=== PATIENT | female | born 1975 | race Caucasian/White ===

== ENCOUNTER → 2024-05-06 16:54 | Outpatient (REF) | payer OTHER, SELFPAY | LOC: HWRAD 16:54 | PROVIDERS: ATTENDING PHYSICIAN Nurse Practitioner | DX: R22.9 Localized swelling, mass and lump, unspecified (principal) | CPT/HCPCS: 73130 ==

== ENCOUNTER 2024-07-01 05:28 | Emergency (ER) | payer OTHER, SELFPAY ==
[2024-07-01 05:39] VITALS: BP 123/84
[2024-07-01 05:54] VITALS: BP 130/77
[2024-07-01 06:00] VITALS: BP 121/88
--- NOTE | 2024-07-01 06:01 | ED.GENMED ---
History of Present Illness
General
Chief Complaint: Chest Pain
Time Seen by Provider: 07/01/24 05:58
History of Present Illness
History of Present Illness:
HPI: Patient presents with intermittent left upper extremity discomfort over the past week. She does not necessarily report any significant chest discomfort. The pain in the left upper extremity radiates towards the left shoulder/neck region. She
was concerned because her brother yesterday. Her brother had other comorbidities. She has at least some questionable shortness of breath. She has no pleuritic pain. Symptoms do not worsen with exertion. She also reports chronic left lower
extremity swelling (hardly noticeable on examination).
EXAM:
GENERAL: Well appearing in no distress
HEENT: Moist oral mucosa
CARDIOVASCULAR: No murmurs, normal heart rate, regular rhythm, No chest wall tenderness
PULMONARY: No respiratory distress, breath sounds are clear and equal
ABDOMEN: Soft with no peritoneal signs, no tenderness
NEUROLOGIC: Excellent strength all extremities, no coordination deficits
PSYCHIATRIC: Appropriate mental status, normal insight and judgement
EXTREMITIES: Nontender, no edema, moves all extremities equally, negative empty can test of the left upper extremity
SKIN: No rash, no lesions
TIME OF INITIAL ENCOUNTER: 6 AM
NUMBER AND COMPLEXITY OF PROBLEMS ADDRESSED AT THE ENCOUNTER
� Chronic conditions affecting care: Denies any significant past medical history
� Acute Exacerbation and/or Progression of Chronic Illness: This is an acute problem
� Differential Diagnosis includes: Musculoskeletal pain, ACS unlikely, stress/anxiety
AMOUNT AND/OR COMPLEXITY OF DATA TO BE REVIEWED AND ANALYZED
� I performed an independent evaluation of and my interpretation is:
EKG: Sinus 67, normal axis, no acute ST abnormality
CT:
X-rays:
Laboratory Studies: White count 5.5, hemoglobin 12.3, chemistries normal, troponin negative (has had symptoms for the past week). hCG negative.
Other:
� Review of other/old records: The patient had an exercise stress test with Dr. Gaona that was normal in 2020
� Clinical information was obtained by an independent historian: None needed
� Prescriptions/Medications Considered but not given:
� Further testing considered but not performed: Consider D-dimer however PERC is negative (unilateral left lower extremity swelling is reported but is chronic for many years)
RISK OF COMPLICATIONS AND/OR MORBIDITY OR MORTALITY OF PATIENT MANAGEMENT
� Social determinants of health affecting care: Lives at home, brother yesterday
� Discussion with other providers: None needed
� Escalation of care including admission/observation vs risk of discharge considered: Vital signs are not consistent with PE. EKG is normal. She had a treadmill stress test 3 years ago that was unremarkable. Suspect component
of stress/anxiety. On reassessment at 7 AM, the patient appears very comfortable. She suspects her symptoms are related to stress. No clear indication for admission to the hospital. Recommend close follow-up with cardiology as well.
Past History
Past History
ED Past Medical History: Other (Vasovagal syncope)
ED Past Surgical History: Gynecological
Social History
Tobacco: Non-smoker
Personal:
Living: with family
Employment: Employed (Desk work)
Family History
Family History: Unable to obtain
Phy Exam
Physical Exam
Physical Exam:
See HPI
Scores
Heart Score for Chest Pain Patients
STEMI patient?: Not applicable
Course
Orders/Labs/Results
Orders:
Orders
07/01/24 05:30
ECG [Electrocardiogram (*1)] Urgent
Reason for Study: Chest Pain
Cardiology Consult: Unknown
EKG- Treatment ONCE
07/01/24 05:51
Test Result ONCE
07/01/24 06:02
Complete Blood Count/With Diff Urgent
Comprehensive Metabolic Panel Urgent
HCG, Serum Qualitative Screen Urgent
Troponin I Urgent
Abnormal Lab Results
07/01/24
06:02
Hct 36.3 L %
(37.0-47.0)
MCV 80.1 L fL
(81.0-99.0)
RDW 15.0 H %
(11.5-14.5)
Absolute Monos (auto) 0.8 H 10^3/uL
(0.1-0.6)
Monocytes % 13.6 H %
(1.7-9.3)
07/01/24 06:02
07/01/24 06:02
Vital Signs
Initial and Last Documented VS:
Initial Vital Signs
Temp Pulse Resp BP Pulse Ox
98.2 F 72 20 123/84 99
07/01/24 05:39 07/01/24 05:39 07/01/24 05:39 07/01/24 05:39 07/01/24 05:39
Last Documented Vital Signs
Temp Pulse Resp BP Pulse Ox
98.2 F 72 20 123/84 99
07/01/24 05:39 07/01/24 05:39 07/01/24 05:39 07/01/24 05:39 07/01/24 05:39
*Critical Care Note
Total Time (30-74mins, 75-104mins- exclusive of procedures): Not Applicable
ED Attending Note
-
Portions of this chart may have been created with voice recognition software.� Occasional wrong word or��sound alike� substitutions may have occurred due to the inherent limitations of voice recognition software.
Discharge Plan
Departure
Prescriptions:
No Action
ondansetron 8 MG tablet,disintegrating
8 mg PO PRN PRN (Reason: nausea)
Patient Comments:
Q4 hr PRN
cefdinir 300 MG capsule
300 mg PO BID
hydrocodone-acetaminophen 1 EACH tablet
1 ea PO PRN PRN (Reason: pain)
Patient Comments:
Q4hr PRN; pt has not taken any yet
Multivitamin
1 tab PO DAILY
cyclobenzaprine 10 MG tablet
10 mg PO BIDPRN PRN (Reason: muscle tightness/spasm) Qty: 10 0RF
tamsulosin 0.4 MG capsule
0.4 mg PO DAILY Qty: 5 0RF
oxycodone-acetaminophen 5 MG/325 MG tablet
1 tab PO Q4HPRN PRN (Reason: pain) Qty: 7 0RF
Referrals:
Georgie Ramirez CRNP [Family Provider] -
Interventions
Interventions:
*Risk Screen - Suicide Last Done: 07/01/24 05:39
*General Assessment Last Done: 07/01/24 05:39
*Neglect/Abuse Screening Last Done: 07/01/24 05:39
ED- Fall Risk Assessment Last Done: 07/01/24 05:39
ED- Cardiac Assessment Last Done: 07/01/24 06:04
Discharge Date and Time
Print Language: [id number]
[2024-07-01 06:07] VITALS: BMI 33.4
[2024-07-01 06:18] LABS: % Basophils 0.9 % (0-2); % Eosinophils 3.6 % (0-6); % Immature Granulocytes 0.2 % (0-0.5); % Monocytes 13.6 % (1.7-9.3); % Neutrophils 44.7 % (42.2-75.2); Absolute Basophils 0.1 10^3/uL (0-0.2); Absolute Eosinophils 0.2 10^3/uL (0-0.7); Absolute Monocytes 0.8 10^3/uL (0.1-0.6); Absolute Neutrophils 2.5 10^3/uL (1.4-6.5); Hematocrit 36.3 % (37.0-47.0); Hemoglobin 12.3 g/dL (12.0-16.0); Mean Corp Hgb Conc. 33.9 g/dL (33.0-37.0); Mean Corpuscular Hgb 27.2 pg (27.0-31.0); Mean Corpuscular Volume 80.1 fL (81.0-99.0); Mean Platelet Volume 9.4 fL (7.4-10.4); Nucleated Red Blood Cells % 0 %; Platelet Count 266 10^3/uL (130-400); Red Blood Cell Count 4.53 10^6/uL (4.20-5.40); White Blood Cell Count 5.5 10^3/uL (4.8-10.8)
[2024-07-01 06:22] LABS: HCG, Serum Qualitative Screen Negative
[2024-07-01 06:27] LABS: ALT (SGPT) 22 U/L (0-35); AST (SGOT) 22 U/L (14-36); Albumin 4.2 g/dl (3.5-5.0); Alkaline Phosphatase 61 U/L (38-126); Blood Urea Nitrogen 15 mg/dl (7-17); Calcium 9.8 mg/dl (8.4-10.2); Carbon Dioxide 23 mmol/L (22-30); Chloride 107 mmol/L (98-107); Estimated Creatinine Clearance 95 ml/min; Glucose 97 mg/dl (70-99); Potassium 4.1 mmol/L (3.5-5.1); Sodium 137 mmol/L (135-145); Total Bilirubin 0.6 mg/dl (0.2-1.3); Total Protein 6.7 g/dl (6.3-8.2); eGFR > 60.00
[2024-07-01 06:36] LABS: Troponin I < 0.012 ng/ml
[2024-07-01 07:00] VITALS: BP 121/76
== END 2024-07-01 07:17 | disposition home or self-care (01) ==
LOC: EMR 05:28
PROVIDERS: Emergency Medicine; EMERGENCY PHYSICIAN Emergency Medicine; FAMILY PHYSICIAN Nurse Practitioner
DX: R07.89 Other chest pain (principal); M25.512 Pain in left shoulder
CPT/HCPCS: 99283; 80053; 84484; 84703; 85025; 93005; 99284

== ENCOUNTER → 2024-07-08 11:24 | Outpatient (REF) | payer OTHER, SELFPAY | LOC: HWRCS 11:24 | PROVIDERS: ATTENDING PHYSICIAN Internal Medicine; FAMILY PHYSICIAN Nurse Practitioner | DX: M79.602 Pain in left arm (principal); R60.0 Localized edema; R00.2 Palpitations | CPT/HCPCS: 93306 ==

== ENCOUNTER → 2024-07-13 15:03 | Outpatient (REF) | payer OTHER, SELFPAY | LOC: RCS 15:03 | PROVIDERS: ATTENDING PHYSICIAN Internal Medicine; FAMILY PHYSICIAN Nurse Practitioner | DX: M79.602 Pain in left arm (principal); R60.0 Localized edema; R00.2 Palpitations | CPT/HCPCS: 93017 ==

== ENCOUNTER → 2024-12-14 14:57 | Outpatient (REF) | payer OTHER, SELFPAY | LOC: HWEVLT 14:57 | PROVIDERS: ATTENDING PHYSICIAN Radiology Diagnostic Radiology | DX: I83.892 Varicose veins of left lower extremity with other complications (principal) | CPT/HCPCS: 93971 ==